=== PATIENT | male | born 1950 | race Caucasian/White ===

== ENCOUNTER 2021-06-04 08:05 | Emergency (ER) | payer OTHER ==
[~2021-06-04] VITALS: Ht 160 cm; Wt 69.4 kg
[2021-06-04] MEDS ORDERED: AMLODIPINE-OLM1 EAC2 (08:20)
[2021-06-04] MEDS ORDERED: TENORMIN25 MG (08:20)
[2021-06-04] MEDS ORDERED: ZESTRIL40 M1 (08:20)
[2021-06-04] MEDS ORDERED: HYDROCHLOROTH12.5 MG (08:20)
[2021-06-04] MEDS ORDERED: PROSCAR5 MG (08:21)
[2021-06-04] MEDS ORDERED: FOSAMAX PLUS D1 EACH (08:21)
[2021-06-05] MEDS ORDERED: GLUMETZA500 MG (11:58)
[2021-06-05] MEDS ORDERED: TAMS0.4C PO (11:58)
== END 2021-06-04 16:04 ==
LOC: ER 08:05
DX: N20.1 Calculus of ureter (principal); N39.0 Urinary tract infection, site not specified; H91.90 Unspecified hearing loss, unspecified ear; I10 Essential (primary) hypertension; E11.9 Type 2 diabetes mellitus without complications

== ENCOUNTER 2021-06-05 11:49 | Inpatient (IN) | payer OTHER ==
[~2021-06-05] VITALS: Ht 160 cm; Wt 69.4 kg
[~2021-06-05 11:49] MED LIST: AMLODIPINE-OLM1 EAC2; FOSAMAX PLUS D1 EACH; HYDROCHLOROTH12.5 MG; PROSCAR5 MG; TENORMIN25 MG; ZESTRIL40 M1
[2021-06-05] MEDS ORDERED: GLUMETZA500 MG (11:58)
[2021-06-05] MEDS ORDERED: TAMS0.4C PO (11:58)
[2021-06-07] MEDS ORDERED: METFORMIN HCL500 M4 (08:00)
[2021-06-07] MEDS ORDERED: MAXIMUM D3325 MCG (08:00)
[2021-06-07] MEDS ORDERED: ALENDRONATE SOD70 MG (08:00)
[2021-06-07] MEDS ORDERED: GABAPENTIN600 MG (08:00)
[2021-06-07] MEDS ORDERED: NORVASC2.5 MG (08:00)
[2021-06-07] MEDS ORDERED: TROMBONEX CAPS1 EACH (08:00)
== END 2021-06-07 13:40 | disposition home or self-care (01) | DRG 660 ==
LOC: ER 11:49 → SEC-K 16:33 → SURG 16:33 → O/R 19:25 → SURG 06-06 01:08
PROVIDERS: ADMIT Urology; ATTEND Urology
PROC: 0V508ZZ Destruction of Prostate, Via Natural or Artificial Opening Endoscopic (ICD-10-PCS; 2021-06-05)
PROC: 0TC78ZZ Extirpation of Matter from Left Ureter, Via Natural or Artificial Opening Endoscopic (ICD-10-PCS; 2021-06-05)
PROC: 0TC68ZZ Extirpation of Matter from Right Ureter, Via Natural or Artificial Opening Endoscopic (ICD-10-PCS; 2021-06-05)
PROC: 0TCB8ZZ Extirpation of Matter from Bladder, Via Natural or Artificial Opening Endoscopic (ICD-10-PCS; 2021-06-05)
PROC: 0T788DZ Dilation of Bilateral Ureters with Intraluminal Device, Via Natural or Artificial Opening Endoscopic (ICD-10-PCS; principal; 2021-06-05 19:00)
DX: N20.1 Calculus of ureter (principal); N17.8 Other acute kidney failure; R31.0 Gross hematuria; N40.0 Benign prostatic hyperplasia without lower urinary tract symptoms; I86.8 Varicose veins of other specified sites; E11.9 Type 2 diabetes mellitus without complications; I10 Essential (primary) hypertension; Z79.84 Long term (current) use of oral hypoglycemic drugs

== ENCOUNTER 2021-06-07 16:12 | Emergency (ER) | payer OTHER ==
[~2021-06-07] VITALS: Ht 160 cm; Wt 69.4 kg
[~2021-06-07 16:12] MED LIST changes: +ALENDRONATE SOD70 MG; +GABAPENTIN600 MG; +GLUMETZA500 MG; +MAXIMUM D3325 MCG; +METFORMIN HCL500 M4; +NORVASC2.5 MG; +TAMS0.4C PO; +TROMBONEX CAPS1 EACH
== END 2021-06-07 17:34 | disposition home or self-care (01) ==
LOC: ER 16:12
DX: N99.89 Other postprocedural complications and disorders of genitourinary system (principal); R33.8 Other retention of urine